=== PATIENT | female | born 1955 | race Caucasian/White ===

== ENCOUNTER → 2017-03-25 | Outpatient (CLI) | payer BC ==
[~2017-03-25] MED LIST: BISACODYL5 MG PO; CEFTIN500 MG PO; Chronulac,Cephulac,E PO; DOCUSATE SODIU100 MG PO; FENTANYL1 EAC5 TD; NORCO 5/3251 TABLET PO; PROTONIX20 MG PO; PROTONIX40 MG PO; VICODIN 5-3001 EACH PO; ZOFRAN8 MG PO; [UNRECOGNIZED DRUG - OTHER] IM
== END | disposition home or self-care (01) ==
LOC: CDC 10:57
DX: R00.1 Bradycardia, unspecified (principal); R94.31 Abnormal electrocardiogram [ECG] [EKG]
CPT/HCPCS: 93000

== ENCOUNTER 2017-11-08 16:30 | Emergency (ER) | payer BC ==
[~2017-11-08] VITALS: Ht 170.2 cm; Wt 68.2 kg
[2017-11-08 16:52] LABS: HEMOGLOBIN 14.9 G/DL (11.9-15.5); MCHC 34.7 G/DL (30.0-36.0); MCV 106.7 FL (83-99); PLATELET COUNT 166 K/uL (156-360); RBC DIS.WIDTH-CV 12.8 % (11.8-14.6); RBC DIS.WIDTH-SD 50.8 % (39-53); RED BLOOD COUNT 4.03 M/uL (3.80-5.20); WHITE BLOOD COUNT 9.7 K/uL (4.1-10.2)
[2017-11-08 17:02] LABS: ALBUMIN 4.2 g/dL (3.2-4.8); CHLORIDE 108 mEq/L (99-109); POTASSIUM 3.6 mEq/L (3.7-5.4); SODIUM 141 mEq/L (136-147)
[2017-11-08 17:04] LABS: GLUCOSE 115 mg/dL (70-99)
[2017-11-08 17:05] LABS: TOTAL PROTEIN 7.2 g/dL (6.4-8.3)
[2017-11-08 17:06] LABS: TOTAL BILIRUBIN 0.7 mg/dL (0.0-1.0)
[2017-11-08 17:08] LABS: ALKALINE PHOSPHATASE 85 IU/L (3-129); CREATININE 0.8 mg/dL (0.6-1.3); GFR ESTIMATE (CALCULATED) > 59 mL/min/
[2017-11-08 17:09] LABS: UREA NITROGEN (BUN) 11 mg/dL (9-23)
[2017-11-08 17:10] LABS: AST (GOT) 17 IU/L (2-34)
[2017-11-08 17:11] LABS: ALT (GPT) 13 IU/L (3-49)
[2017-11-08 19:31] LABS: APPEARANCE SL.HAZY ((CLEAR)); BILIRUBIN NEGATIVE; BLOOD MODERATE; COLOR YELLOW ((YELLOW)); GLUCOSE (STRIP) NEGATIVE; KETONES 20; LEUKOCYTES NEGATIVE; NITRITE NEGATIVE; PROTEIN (STRIP) 30; SPECIFIC GRAVITY 1.016 (1.000-1.030); UROBILINOGEN 0.2 MG/DL (0.2-1.0)
[2017-11-08 19:34] LABS: BACTERIA RARE /HPF; EPITHELIAL CELLS RARE /HPF; MUCUS 2+ /LPF; UCUL ADDED? YES; WHITE BLOOD CELLS 40-50 /HPF (0-5)
[2017-11-08] MEDS ORDERED: FLAGYL500 MG PO (21:51)
[2017-11-08] MEDS ORDERED: CIPRO500 MG PO (21:51)
[2017-11-08 22:06] VITALS: BP 128/61
== END 2017-11-08 22:35 | disposition home or self-care (01) ==
LOC: EME 16:30
DX: C21.0 Malignant neoplasm of anus, unspecified (principal); C78.7 Secondary malignant neoplasm of liver and intrahepatic bile duct; C79.11 Secondary malignant neoplasm of bladder; K51.00 Ulcerative (chronic) pancolitis without complications; Z85.828 Personal history of other malignant neoplasm of skin; Z87.442 Personal history of urinary calculi; F17.200 Nicotine dependence, unspecified, uncomplicated; Z88.8 Allergy status to other drugs, medicaments and biological substances; K21.9 Gastro-esophageal reflux disease without esophagitis
CPT/HCPCS: 74177; 80053; 81003; 85027; 87086; 99281; 99285; J7030

== ENCOUNTER → 2018-01-01 | Outpatient (CLI) | payer OTHER, BC ==
[~2018-01-01] MED LIST changes: +CIPRO500 MG PO; +FLAGYL500 MG PO; +LOMOTIL TABLET1 EACH PO; +MARINOL5 MG PO; +ZOFRAN ODT4 MG PO
== END | disposition home or self-care (01) ==
LOC: RAD 09:46 → EDSTATUS 10:00 → RAD 10:00
DX: R59.0 Localized enlarged lymph nodes (principal)
CPT/HCPCS: 76536